=== PATIENT | female | born 1995 | race Two or more races ===

== ENCOUNTER 2020-06-07 17:33 | Emergency (ER) | payer SELFPAY ==
--- NOTE | 2020-06-07 18:38 | ER Document Report ---
ED Medical Screen (RME) - General Chief Complaint: Leg Swelling Stated Complaint: LEG SWELLING Time Seen by Provider: 06/07/20 18:36 Mode of Arrival: Ambulatory Information source: Patient Notes: 25-year-old female presented to ED for complaint of right leg swelling with pain to both knees that are swollen. She states that started 4 days ago on the when she came from [place] to [place]. She states both knees were swollen before that but the leg started swelling on the . She states she did have x-rays at home and they took some fluid off last month. She is alert oriented respirations regular nonlabored speaking in full sentences. I have ordered x-rays of both knees and a venous Doppler to the right leg. I have greeted and performed a rapid initial assessment of this patient. A comprehensive ED assessment and evaluation of the patient, analysis of test results and completion of medical decision making process will be conducted by an additional ED providers. Physical Exam - Vital signs Vitals: Temp Pulse Resp BP Pulse Ox 98.9 F 58 L 18 118/56 L 100 06/07/20 17:43 06/07/20 17:43 06/07/20 17:43 06/07/20 17:43 06/07/20 17:43 Course - Vital Signs Vital signs: Temp Pulse Resp BP Pulse Ox 98.9 F 58 L 18 118/56 L 100 06/07/20 17:43 06/07/20 17:43 06/07/20 17:43 06/07/20 17:43 06/07/20 17:43
--- NOTE | 2020-06-07 19:04 | RADIOLOGY REPORT (SQ) ---
EXAM DESCRIPTION: KNEE RIGHT 4 VIEWS IMAGES COMPLETED DATE/TIME: 06/07/2020 6:55 pm REASON FOR STUDY: Pain and swelling to both knees COMPARISON: None. NUMBER OF VIEWS: Four views. TECHNIQUE: AP, lateral, and both oblique radiographic images acquired of the right knee. LIMITATIONS: None. FINDINGS: MINERALIZATION: Normal. BONES: No acute fracture or dislocation. No worrisome bone lesions. JOINT: No effusion. SOFT TISSUES: No soft tissue swelling. No radio-opaque foreign body. OTHER: No other significant finding. IMPRESSION: NEGATIVE STUDY OF THE RIGHT KNEE. NO RADIOGRAPHIC EVIDENCE OF ACUTE INJURY. TECHNICAL DOCUMENTATION: JOB ID: [id number] 2010 [employer]- All Rights Reserved Reading location - IP/workstation name: [email or web address]
--- NOTE | 2020-06-07 19:05 | RADIOLOGY REPORT (SQ) ---
EXAM DESCRIPTION: KNEE LEFT 4 VIEW IMAGES COMPLETED DATE/TIME: 06/07/2020 6:55 pm REASON FOR STUDY: Pain and swelling to both knees COMPARISON: None. NUMBER OF VIEWS: Four views. TECHNIQUE: AP, lateral, and both oblique radiographic images acquired of the left knee. LIMITATIONS: None. FINDINGS: MINERALIZATION: Normal. BONES: No acute fracture or dislocation. No worrisome bone lesions. JOINT: Large joint effusion. SOFT TISSUES: No soft tissue swelling. No radio-opaque foreign body. OTHER: No other significant finding. IMPRESSION: Large joint effusion. No acute osseous finding. TECHNICAL DOCUMENTATION: JOB ID: [id number] 2010 [employer]- All Rights Reserved Reading location - IP/workstation name: [email or web address]
[2020-06-07 20:10] LABS: ABSOLUTE BASOPHILS # (AUTO) 0.1 10^3/uL (0.0-0.2); ABSOLUTE EOSINOPHILS # (AUTO) 0.1 10^3/uL (0.0-0.6); ABSOLUTE LYMPHOCYTES (AUTO) 2.6 10^3/uL (0.5-4.7); ABSOLUTE MONOCYTES (AUTO) 0.5 10^3/uL (0.1-1.4); BASOPHILS % (AUTO) 0.8 % (0-2); EOSINOPHILS % (AUTO) 1.7 % (0-6); HEMATOCRIT 38.2 % (36.0-47.0); HEMOGLOBIN 13.2 g/dL (12.0-15.5); LYMPHOCYTES % (AUTO) 35.1 % (13-45); MEAN CORPUSCULAR HGB CONC 34.6 g/dL (32.0-36.0); MEAN CORPUSCULAR VOLUME 87 fl (80-97); PLATELET COUNT 321 10^3/uL (150-450); RED BLOOD COUNT 4.41 10^6/uL (3.72-5.28); SEGMENTED NEUTROPHILS % (AUTO) 55.4 % (42-78); TOTAL CELLS COUNTED % (AUTO) 100 %; WHITE BLOOD COUNT 7.3 10^3/uL (4.0-10.5)
[2020-06-07 20:28] LABS: ALBUMIN 4.1 g/dL (3.5-5.0); ALKALINE PHOSPHATASE 63 U/L (38-126); ANION GAP 5 (5-19); ASPARTATE AMINO TRANSFERASE 19 U/L (14-36); BILIRUBIN,TOTAL 0.4 mg/dL (0.2-1.3); BLOOD UREA NITROGEN 21 mg/dL (7-20); CALCIUM 9.4 mg/dL (8.4-10.2); CARBON DIOXIDE 26 mmol/L (22-30); CHLORIDE 105 mmol/L (98-107); GLUCOSE 88 mg/dL (75-110); POTASSIUM 4.6 mmol/L (3.6-5.0); TOTAL PROTEIN 7.5 g/dL (6.3-8.2)
--- NOTE | 2020-06-07 20:37 | RADIOLOGY REPORT (SQ) ---
US LOWER EXTREMITY VEINS HISTORY: Leg pain and swelling. COMPARISON: None. TECHNIQUE: Grayscale, color Doppler, and spectral Doppler images of the right lower extremity were performed. FINDINGS: The common femoral, superficial femoral and popliteal veins are patent and compressible. Normal augmentation and color Doppler blood flow in the aforementioned veins. The visualized calf veins are also patent. Diffuse subcutaneous edema is present. IMPRESSION: No DVT in the right lower extremity.
--- NOTE | 2020-06-08 02:32 | ER Document Report ---
ED Extremity Problem, Lower - General Chief Complaint: Leg Swelling Stated Complaint: LEG SWELLING Time Seen by Provider: 06/07/20 18:36 Primary Care Provider: ERIKA ARSHAD MD [ACTIVE STAFF] - Follow up in 1 week HENRY LOCKHART JR, DO [ACTIVE PROVISIONAL STAFF] - Follow up in 1 week Mode of Arrival: Ambulatory Notes: Patient is a 25-year-old female who comes emergency department for chief complaint of pain in both of her legs. She states her left knee is swollen and her right leg yesterday was painful behind the knee but now she has swelling in the right leg in the calf and in the ankle. She denies injury. She states she has had intermittent issues with her knees, she had drained effusions in both knees within the past couple of weeks in [place], she states she is moving here and she traveled from [place] 4 days ago by plane. She denies smoking, control, , or history of blood clot. She denies medical history otherwise. Past Medical History - General Information source: Patient - Social History Smoking Status: Never Smoker Frequency of alcohol use: None Drug Abuse: None Lives with: Family Family History: Reviewed & Not Pertinent - Medical History Medical History: Negative - Immunizations Immunizations up to date: Yes Hx Diphtheria, Pertussis, Tetanus Vaccination: Yes Review of Systems - Review of Systems Constitutional: No symptoms reported EENT: No symptoms reported Cardiovascular: No symptoms reported Respiratory: No symptoms reported Gastrointestinal: No symptoms reported Genitourinary: No symptoms reported Female Genitourinary: No symptoms reported Musculoskeletal: See HPI Skin: No symptoms reported Hematologic/Lymphatic: See HPI Neurological/Psychological: No symptoms reported Physical Exam - Vital signs Vitals: Temp Pulse Resp BP Pulse Ox 98.9 F 58 L 18 118/56 L 100 06/07/20 17:43 06/07/20 17:43 06/07/20 17:43 06/07/20 17:43 06/07/20 17:43 - Notes Notes: GENERAL: Alert, interacts well. No acute distress. HEAD: Normocephalic, atraumatic. EYES: Pupils equal, round, and reactive to light. Extraocular movements intact. ENT: Oral mucosa moist, tongue midline. Oropharynx unremarkable. Airway patent. NECK: Full range of motion. Supple. Trachea midline. No lymphadenopathy. LUNGS: Clear to auscultation bilaterally, no wheezes, rales, or rhonchi. No respiratory distress. Non-tender chest wall. HEART: Regular rate and rhythm. No murmur ABDOMEN: Soft, non-tender. Non-distended. EXTREMITIES: There is an effusion that is noted in the left knee, however there is no erythema, significant warmth, noted tenderness, and there is full range of motion. Normal distal neurovascular exam, normal left lower extremity exam otherwise. Right lower extremity has trace edema around the ankle, distal tibia, and lateral malleolus. No pitting edema, nontender calf, unremarkable extremity exam otherwise. Right index finger with slight swelling and discomfort at the PIP, otherwise unremarkable upper extremities. BACK: no cervical, thoracic, lumbar midline tenderness. No saddle anesthesia, normal distal neurovascular exam. Moves all extremities in full range of motion. NEUROLOGICAL: Alert and oriented x3. Normal speech. Cranial nerves II through XII grossly intact. Strength 5/5 in all extremities. PSYCH: Normal affect, normal mood. SKIN: Warm, dry, normal turgor. No rashes or lesions noted. Course - Re-evaluation Re-evalutation: Patient noted to have swelling and discomfort which is very mild over the right index finger at the PIP, has had intermittent effusions in both knees, states that she has had problems with her elbows as well recently. 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 Suspect a rheumatologic component. Very low suspicion of infection based on her exam, she has full range of motion, no erythema or abnormal heat, no fever, and she ambulates without difficulty. X-rays unremarkable except for left knee effusion, ultrasound of the right lower extremity with Doppler shows no blood clot or concerning findings. Discussed options with patient. Patient provided with left knee immobilizer, crutches, and she will be placed on a short steroid course with close orthopedic and primary care follow-up. Discussed details of this at length. Discussed return precautions. Patient states understanding and agreement. - Vital Signs Vital signs: Temp Pulse Resp BP Pulse Ox 98.6 F 66 16 128/73 H 100 06/08/20 02:36 06/08/20 02:36 06/08/20 02:36 06/08/20 02:36 06/08/20 02:36 - Laboratory Result Diagrams: 06/07/20 20:02 06/07/20 20:02 Laboratory results interpreted by me: 06/07/20 20:02 Sodium 135.8 L BUN 21 H Procedures - Immobilization Left knee Pre-Proc Neuro Vasc Exam: Normal Immobilizer type: Knee immobilizer Performed by: PCT Post-Proc Neuro Vasc Exam: Normal Alignment checked and good: Yes Discharge - Discharge Clinical Impression: Swelling of left knee joint, Right leg swelling Joint pain Qualifiers: Joint pain location: unspecified Qualified Code(s): M25.50 - Pain in unspecified joint Condition: Stable Disposition: HOME, SELF-CARE Additional Instructions: Your ultrasound of the right leg does not show a clot or concerning finding. 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 This should go away with time. Compression stockings and elevation will help speed this up. You do have fluid in your left knee joint called an effusion. I recommend that you wear the knee immobilizer, use the crutches, and follow-up with orthopedics. Call the listed referral to follow-up with them. Because you have pain and swelling in multiple joints I am concerned this could be autoimmune, I highly recommend a primary care follow-up and rheumatology work-up as we discussed. Call the primary care referral listed as well. Return for concerning symptoms including severe worsening pain, developing redness or fever, or any other concerning symptoms. Prescriptions: Prednisone [Deltasone 20 mg Tablet] 40 mg PO DAILY 7 Days #14 tablet Referrals: HENRY LOCKHART JR, DO [ACTIVE PROVISIONAL STAFF] - Follow up in 1 week ERIKA ARSHAD MD [ACTIVE STAFF] - Follow up in 1 week
[2020-06-08 02:40] VITALS: BP 128/73
== END 2020-06-08 03:02 | disposition home or self-care (01) ==
LOC: ER 17:33
DX: M25.462 Effusion, left knee (principal); M25.441 Effusion, right hand; R60.0 Localized edema; M25.561 Pain in right knee; Z98.890 Other specified postprocedural states
CPT/HCPCS: 36415; 80053; 85025; 93971; 99284